=== PATIENT | male | born 1945 | race Caucasian/White ===

== ENCOUNTER → 2019-02-26 | Day surgery (SDC) | payer MEDICARE, BC ==
[~2019-02-26] MED LIST: Lactated Ringers 1,000 ML IV SCH; Propofol 200 MG/20 ML SDV IV ONE
[2019-02-26 08:46] LABS: CHLORIDE,CL 105 mEq/L (98-106); SODIUM,NA 141 mEq/L (136-145)
--- NOTE | 2019-02-26 11:53 | OR ---
DATE OF OPERATION: 02/26/2019 PREOPERATIVE DIAGNOSIS: SCREENING COLONOSCOPY. POSTOPERATIVE DIAGNOSIS: SCREENING COLONOSCOPY. SURGEON: Stanton Guardado MD PROCEDURE: FULL-LENGTH COLONOSCOPY. ANESTHESIA: MAC. COMPLICATIONS: None. SPECIMEN: None. FINDINGS: 1. Full-length colonoscopy. 2. Moderate sigmoid diverticulosis. 3. Significant perianal hemorrhoid disease. RECOMMENDATIONS: Followup colonoscopy on an as-needed basis. INDICATIONS: The patient was seen for a routine physical. It has been 10 years since his last colonoscopy. He elected for his last screening exam. DESCRIPTION OF PROCEDURE: The patient was prepped and draped and placed in the left lateral decubitus position. A lubricated Olympus colonoscope was inserted and with relative ease advanced to the cecum. The patient is quite tortuous, but scope passes easily. We were able to visualize the ileocecal valve. It is very difficult just because we were at the end of the scope to get down into the pouch itself and see the appendiceal orifice. Irrigation was accomplished and no gross abnormalities could be seen in the pouch although we were not up close. Upon withdrawal, throughout the length of the colon, I find no signs of any polyps, mass, ulceration, or bleeding sites. No vascular abnormalities or signs of colitis. The patient had scattered diverticula throughout most of the mid to distal sigmoid, and rectosigmoid junction, moderate in severity. The rectal vault was benign. Retroflexion showed some significant perianal hemorrhoid disease, otherwise, unremarkable. Air was suctioned. Scope was removed without complication. HERBER/ELSA /[id number]
== END ==
LOC: CC.SDS 07:56
PROVIDERS: ATTEND Family Medicine
DX: Z12.11 Encounter for screening for malignant neoplasm of colon (principal); K57.30 Diverticulosis of large intestine without perforation or abscess without bleeding; K64.8 Other hemorrhoids; N40.1 Benign prostatic hyperplasia with lower urinary tract symptoms; R35.1 Nocturia; I48.91 Unspecified atrial fibrillation; Z79.01 Long term (current) use of anticoagulants; Z79.2 Long term (current) use of antibiotics
CPT/HCPCS: 36415; 80053; 80061; 81001; 84153; 84439; 84443; 85025; G0121; J2704; J7120